=== PATIENT | female | born 1955 | race Caucasian/White ===

== ENCOUNTER → 2016-06-18 | Outpatient (CLI) | payer BC | LOC: MC.RAD 14:31 | DX: Z12.31 Encounter for screening mammogram for malignant neoplasm of breast (principal) ==

== ENCOUNTER → 2017-06-24 | Outpatient (CLI) | payer BC | LOC: MC.RAD 14:40 | DX: Z12.31 Encounter for screening mammogram for malignant neoplasm of breast (principal) ==

== ENCOUNTER → 2018-06-23 | Outpatient (CLI) | payer BC | LOC: MC.RAD 14:08 | DX: Z12.31 Encounter for screening mammogram for malignant neoplasm of breast (principal); N64.89 Other specified disorders of breast ==

== ENCOUNTER → 2018-07-07 | Outpatient (CLI) | payer BC | LOC: MC.RAD 13:52 | DX: N64.89 Other specified disorders of breast (principal) | CPT/HCPCS: G0279 ==

== ENCOUNTER → 2020-08-11 | Outpatient (CLI) | payer BC, MEDICARE | LOC: MC.RAD 08:15 | DX: Z12.31 Encounter for screening mammogram for malignant neoplasm of breast (principal) ==

== ENCOUNTER → 2021-08-20 | Outpatient (CLI) | payer MEDICARE, BC | LOC: MC.RAD 08-18 09:00 | DX: Z12.31 Encounter for screening mammogram for malignant neoplasm of breast (principal) ==

== ENCOUNTER → 2023-09-23 | Outpatient (CLI) | payer MEDICARE, BC | LOC: MC.RAD 13:20 | DX: Z12.31 Encounter for screening mammogram for malignant neoplasm of breast (principal) ==